=== PATIENT | female | born 1970 | race Asian ===

== ENCOUNTER 2018-11-08 18:21 | Emergency (ER) | payer SELFPAY ==
[~2018-11-08] VITALS: Ht 162.6 cm; Wt 68.0 kg
[2018-11-08 18:23] VITALS: BP 120/81
== END 2018-11-08 18:27 | disposition left against medical advice (07) ==
LOC: ER 18:21
DX: F10.920 Alcohol use, unspecified with intoxication, uncomplicated (principal); Y90.0 Blood alcohol level of less than 20 mg/100 ml; Z53.21 Procedure and treatment not carried out due to patient leaving prior to being seen by health care provider